=== PATIENT | male | born 1985 | race Caucasian/White ===

== ENCOUNTER 2016-09-09 | Emergency (ER) | payer OTHER ==
--- NOTE | 2016-09-09 05:42 | ED ---
General Adult HPI - General Chief complaint: Allergic Reaction Stated complaint: allergic rx Time Seen by Provider: 09/09/16 05:23 Source: patient, RN notes reviewed, old records reviewed Mode of arrival: ambulatory Limitations: no limitations - History of Present Illness Initial comments: This is a 31-year-old male here for evaluation. Patient coming into ER for evaluation of possible causes hallucinations. Patient is concerned that hallucinations may be caused by QT restating for working out, patient does admit to smoking marijuana, patient states that he denies any other drugs or alcohol. Patient states symptoms began earlier last night have been episodic and he was mainly concerned when he woke with the symptoms tonight. Patient denies any nausea or vomiting. No diarrhea. No fevers. No head trauma. - Related Data Home Medications Medication Instructions Recorded Confirmed No Known Home Medications [No 09/09/16 09/09/16 Known Home Medications] Allergies Allergy/AdvReac Type Severity Reaction Status Date / Time No Known Allergies Allergy Verified 04/29/16 13:09 Review of Systems ROS Statement: Those systems with pertinent positive or pertinent negative responses have been documented in the HPI. ROS Other: All systems not noted in ROS Statement are negative. 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 Absent: scleral icterus, conjunctival injection, periorbital swelling Pupils: Present: mydriatic ENT exam: Present: normal exam, mucous membranes moist Neck exam: Present: normal inspection. Absent: tenderness, meningismus, lymphadenopathy Respiratory exam: Present: normal lung sounds bilaterally. Absent: respiratory distress, wheezes, rales, rhonchi, stridor Cardiovascular Exam: Present: regular rate, normal rhythm, normal heart sounds. Absent: systolic murmur, diastolic murmur, rubs, gallop, clicks GI/Abdominal exam: Present: soft, normal bowel sounds. Absent: distended, tenderness, guarding, rebound, rigid Extremities exam: Present: normal inspection, full ROM, normal capillary refill. Absent: tenderness, pedal edema, joint swelling, calf tenderness Back exam: Present: normal inspection Neurological exam: Present: alert, oriented X3, CN II-XII intact Psychiatric exam: Present: normal affect, normal mood Skin exam: Present: warm, dry, intact, normal color. Absent: rash Course Vital Signs 09/09/16 05:02 Temperature 97.9 F Pulse Rate 65 Respiratory 20 Rate Blood Pressure 168/97 O2 Sat by Pulse 96 Oximetry - Reevaluation(s) Reevaluation #1: 09/09/16 05:40 Patient's family does not want to stay for evaluation Medical Decision Making - Medical Decision Making 31 male tear encouraged reevaluated regarding possible co-ingestion secondary to smoking marijuana. She does have some hallucinations, dilated pupils. Patient says he does not want to be evaluated once to leave emergency room Disposition Clinical Impression: Adverse reaction to drug, Hallucinations Disposition: Left Against Medical Advice Condition: Undetermined
== END 2016-09-09 05:50 | disposition left against medical advice (07) ==
CPT/HCPCS: 99283

== ENCOUNTER 2017-01-27 01:56 | Emergency (ER) | payer OTHER ==
[2017-01-27 02:03] VITALS: BP 182/86; PULSE 107; RESP 22; TEMP 97.5
--- NOTE | 2017-01-27 02:22 | ED ---
General Adult HPI - General Chief complaint: Overdose Stated complaint: Altered Mental Status Time Seen by Provider: 01/27/17 02:08 Source: patient, EMS, RN notes reviewed Mode of arrival: EMS Limitations: altered mental status - History of Present Illness Initial comments: This is a male unknown age presents emergency department via EMS for altered mental status. Patient reportedly smoked crystal meth for EMS report. Patient does smell of alcohol. Patient will not give any information to us. Patient is having erratic behavior at this time. Patient denies any drug use or any alcohol use to us. Patient denies any physical complaints. No other history is provided at this time. Review of Systems ROS Statement: Those systems with pertinent positive or pertinent negative responses have been documented in the HPI. ROS Other: All systems not noted in ROS Statement are negative. Past Medical History Past Medical History: Unable to Obtain Past Surgical History: Unable to Obtain General Exam Limitations: altered mental status General appearance: alert, appears intoxicated Head exam: Present: atraumatic, normocephalic, normal inspection Eye exam: Present: PERRL, EOMI, conjunctival injection. Absent: normal appearance, scleral icterus, periorbital swelling ENT exam: Present: normal exam, normal oropharynx, mucous membranes moist, TM's normal bilaterally Neck exam: Present: normal inspection, full ROM. Absent: tenderness, meningismus, lymphadenopathy Respiratory exam: Present: normal lung sounds bilaterally. Absent: respiratory distress, wheezes, rales, rhonchi, stridor Cardiovascular Exam: Present: normal rhythm, tachycardia, normal heart sounds. Absent: systolic murmur, diastolic murmur, rubs, gallop, clicks GI/Abdominal exam: Present: soft, normal bowel sounds. Absent: distended, tenderness, guarding, rebound, rigid Back exam: Absent: CVA tenderness (R), CVA tenderness (L) Neurological exam: Present: alert. Absent: oriented X3 Skin exam: Present: warm, dry, intact, normal color. Absent: rash Course Vital Signs 01/27/17 01:57 Temperature 97.5 F L Pulse Rate 107 H Respiratory 22 Rate Blood Pressure 182/86 O2 Sat by Pulse 98 Oximetry - Reevaluation(s) Reevaluation #1: 01/27/17 03:43 Patient's friend is here who states that he was at his house when the patient took off running. Patient does have a history of drug abuse including meth. Patient did admit to using meth. Patient to behavior is improving at this time he is more coherent. Patient's friend states that he will accept responsibility and take the patient home to his father's house. Patient's father was notified and stated that he could not, because he takes sleeping medications. Medical Decision Making - Medical Decision Making 31-year-old male present emergency department for evaluation. Patient has high and meth at this time. Patient's behavior is improving [place] here. Patient will be discharged to friend who accepts responsibility. Patient we discharged - Lab Data Result diagrams: 01/27/17 02:20 01/27/17 02:20 Lab Results 01/27/17 01/27/17 01/27/17 Range/Units 02:20 02:20 02:38 WBC 10.1 (3.8-10.6) k/uL RBC 4.71 (4.30-5.90) m/uL Hgb 15.6 (13.0-17.5) gm/dL Hct 47.3 (39.0-53.0) % MCV 100.3 H (80.0-100.0) fL MCH 33.2 (25.0-35.0) pg MCHC 33.1 (31.0-37.0) g/dL RDW 12.6 (11.5-15.5) % Plt Count 259 (150-450) k/uL Neutrophils % 63 % Lymphocytes % 27 % Monocytes % 5 % Eosinophils % 2 % Basophils % 1 % Neutrophils # 6.3 (1.3-7.7) k/uL Lymphocytes # 2.7 (1.0-4.8) k/uL Monocytes # 0.5 (0-1.0) k/uL Eosinophils # 0.2 (0-0.7) k/uL Basophils # 0.1 (0-0.2) k/uL Sodium 141 (137-145) mmol/L Potassium 4.3 (3.5-5.1) mmol/L Chloride 104 (98-107) mmol/L Carbon Dioxide 18 L (22-30) mmol/L Anion Gap 19 mmol/L BUN 16 (9-20) mg/dL Creatinine 1.15 (0.66-1.25) mg/dL Est GFR (MDRD) Af Amer >60 (>60 ml/min/1.73 sqM) Est GFR (MDRD) Non-Af >60 (>60 ml/min/1.73 sqM) Glucose 100 H (74-99) mg/dL Calcium 10.2 (8.4-10.2) mg/dL Total Bilirubin 1.2 (0.2-1.3) mg/dL AST 24 (17-59) U/L ALT 24 (21-72) U/L Alkaline Phosphatase 61 (38-126) U/L Total Protein 8.5 H (6.3-8.2) g/dL Albumin 5.2 H (3.5-5.0) g/dL Urine Color Light Yellow Urine Appearance Clear (Clear) Urine pH 6.0 (5.0-8.0) Ur Specific [place] 1.003 (1.001-1.035) Urine Protein Negative (Negative) Urine Glucose (UA) Negative (Negative) Urine Ketones Negative (Negative) Urine Blood Negative (Negative) Urine Nitrite Negative (Negative) Urine Bilirubin Negative (Negative) Urine Urobilinogen <2.0 (<2.0) mg/dL Ur Leukocyte Esterase Negative (Negative) Urine Opiates Screen Not Detected (NotDetected) Ur Oxycodone Screen Not Detected (NotDetected) Urine Methadone Screen Not Detected (NotDetected) Ur Propoxyphene Screen Not Detected (NotDetected) Ur Barbiturates Screen Not Detected (NotDetected) U Tricyclic Antidepress Not Detected (NotDetected) Ur Phencyclidine Scrn Not Detected (NotDetected) Ur Amphetamines Screen Detected H (NotDetected) U Methamphetamines Scrn Detected H (NotDetected) U Benzodiazepines Scrn Not Detected (NotDetected) Urine Cocaine Screen Not Detected (NotDetected) U Marijuana (THC) Screen Detected H (NotDetected) Serum Alcohol 57 mg/dL Disposition Clinical Impression: Methamphetamine use Disposition: HOME SELF-CARE Condition: Stable Instructions: Methamphetamine Abuse (ED) Additional Instructions: Please return to the Emergency Department if symptoms worsen or any other concerns. Referrals: None,Stated [REFERRING] - 1-2 days Time of Disposition: 03:45
[2017-01-27 02:42] LABS: Basophils # (A) 0.1 k/uL (0-0.2); Basophils % (A) 1 %; Eosinophils # (A) 0.2 k/uL (0-0.7); Eosinophils % (A) 2 %; HCT 47.3 % (39.0-53.0); HDW 2.11; HGB 15.6 gm/dL (13.0-17.5); Luc # (Auto) 0.22; Luc % (Auto) 2; Lymphocytes # (A) 2.7 k/uL (1.0-4.8); Lymphocytes % (A) 27 %; MCH 33.2 pg (25.0-35.0); MCHC 33.1 g/dL (31.0-37.0); MCV 100.3 fL (80.0-100.0); Mean Platelet Volume 7.7; Monocytes # (A) 0.5 k/uL (0-1.0); Monocytes % (A) 5 %; Neutrophils # (A) 6.3 k/uL (1.3-7.7); Neutrophils % (A) 63 %; RBC 4.71 m/uL (4.30-5.90); RDW 12.6 % (11.5-15.5); WBC 10.1 k/uL (3.8-10.6); WBC (Perox) 10.11
[2017-01-27 03:03] LABS: ALT 24 U/L (21-72); AST 24 U/L (17-59); Alcohol 57 mg/dL; Alkaline Phosphatase 61 U/L (38-126); Anion Gap 19 mmol/L; Blood Urea Nitrogen 16 mg/dL (9-20); Calcium 10.2 mg/dL (8.4-10.2); Carbon Dioxide 18 mmol/L (22-30); Chloride 104 mmol/L (98-107); Glucose 100 mg/dL (74-99); Non-African American GFR(MDRD) >60 (>60 ml/min/1.73 sqM); Potassium 4.3 mmol/L (3.5-5.1); Sodium 141 mmol/L (137-145); Total Bilirubin 1.2 mg/dL (0.2-1.3); Total Protein 8.5 g/dL (6.3-8.2)
[2017-01-27 03:06] LABS: Appearance,Urine Clear (Clear); Bilirubin,Urine Negative (Negative); Glucose,Urine (UA) Negative (Negative); Ketones,Urine Negative (Negative); Leukocyte Esterase,Urine Negative (Negative); Nitrite,Urine Negative (Negative); Protein,Urine Negative (Negative); Specific Gravity,Urine 1.003 (1.001-1.035); UA Billing (MACRO vs. MICRO) CHEM; Urobilinogen,Urine <2.0 mg/dL (<2.0)
== END 2017-01-27 03:53 | disposition home or self-care (01) ==
LOC: EC 01:56 → MERGE 01:56 → EC 03:53
DX: F15.99 Other stimulant use, unspecified with unspecified stimulant-induced disorder (principal); R41.82 Altered mental status, unspecified
CPT/HCPCS: 36415; 80053; 80306; 80320; 81003; 85025; 99284